=== PATIENT | female | born 1995 | race Caucasian/White ===

== ENCOUNTER 2018-11-29 19:22 | Emergency (ER) | payer MEDICAID ==
[~2018-11-29] VITALS: Wt 50.9 kg
[2018-11-29] MEDS ORDERED: LIDOCAINE/MYLANTA 40 ML BTL PO STA (23:23)
[2018-11-29] MEDS ORDERED: BELLADONNA/PHENOBARBITAL TAB PO STA (23:23)
[2018-11-29] MEDS ORDERED: MAG-19 PO (23:26)
[2018-11-29] MEDS ORDERED: ONDA4TAB14 PO (23:26)
--- NOTE | 2018-11-29 23:46 | ERD ---
ER Documentation Chief Complaint Chief Complaint AP/ VOMIT X'S 1 DAY HPI 23-year-old female presents with abdominal pain and vomiting which started yesterday after eating food from a restaurant. States that she states that she ate a lot of guacamole. After the vomiting she started getting abdominal pain in the epigastric area and then she started getting some mild pain in the lower right quadrant. She went to her clinic and they told her she should come to the ER due to the lower right quadrant pain. She currently states that she does not have any more pain and the pain is since resolved. Last episode of vomiting was this morning and she has had water intake and successfully kept it down since then. Has not taken any treatments. No current nausea or vomiting. She denies any fevers, diarrhea,. Describes vomiting is nonbilious and nonbloody. Denies past medical history. Denies allergies. Denies medications. Denies surgeries. Denies alcohol, tobacco, drug use. Up to date on vaccines. ROS All systems reviewed and are negative except as per history of present illness. Medications Home Meds Active Scripts Ondansetron (Ondansetron Odt) 4 Mg Tab.rapdis, 4 MG PO Q6H PRN for NAUSEA AND/OR VOMITING, #10 TAB Prov:LAURI NICOLAS 11/29/18 Magaldrate/Simethicone* (Mylanta*) 355 Ml Susp, 30 ML PO QID PRN for GASTROINTESTINAL UPSET, #1 BOTTLE Prov:LAURI NICOLAS 11/29/18 Allergies Allergies: Coded Allergies: No Known Allergy (Unverified , 09/17/14) PMhx/Soc Medical and Surgical Hx: pt denies Medical Hx, pt denies Surgical Hx Hx Alcohol Use: No Hx Substance Use: No Hx Tobacco Use: No Smoking Status: Never smoker FmHx Family History: No diabetes, No coronary disease, No other Physical Exam Vitals Vital Signs Date Temp Pulse Resp B/P (MAP) Pulse Ox O2 O2 Flow FiO2 Time Delivery Rate 11/29/18 99.9 93 18 131/75 99 19:48 (93) Physical Exam Const: No acute distress Head: Atraumatic Eyes: Normal Conjunctiva ENT: Normal External Ears, Nose and Mouth. Neck: Full range of motion. No meningismus. Resp: Clear to auscultation bilaterally Cardio: Regular rate and rhythm, no murmurs Abd: Soft, non tender, non distended. Normal bowel sounds. No McBurney's point tenderness. Patient able to jump up and down on exam. Skin: No petechiae or rashes Back: No midline or flank tenderness Ext: No cyanosis, or edema Neur: Awake and alert Psych: Normal Mood and Affect Results 24 hrs Laboratory Tests Test 11/29/18 23:49 POC Beta HCG, Qualitative NEGATIVE Current Medications Medications Dose Sig/Xin Start Time Status Last (Trade) Ordered Route PRN Stop Time Admin Dose Reason Admin 40 ml ONCE STAT 11/29/18 DC 11/29/18 Miscellaneous PO 23:23 23:33 Medication 11/29/18 23:25 (Gi Cocktail (2)) Belladonna/ 2 tab ONCE STAT 11/29/18 DC 11/29/18 Phenobarbital PO 23:23 23:33 () 11/29/18 23:25 Procedures/MDM MDM: 23-year-old female presents with abdominal pain and vomiting which started yesterday after eating food from a restaurant. States that she states that she ate a lot of guacamole. After the vomiting she started getting abdominal pain in the epigastric area and then she started getting some mild pain in the lower right quadrant. She went to her clinic and they told her she should come to the ER due to the lower right quadrant pain. She currently states that she does not have any more pain and the pain is since resolved. Last episode of vomiting was this morning and she has had water intake and successfully kept it down since then. Has not taken any treatments. No current nausea or vomiting. She denies any fevers, diarrhea,. Physical exam was completely within normal limits. There is no McBurney's point tenderness and patient denied any current pain or nausea recent episodes of vomiting. Therefore I have extremely low suspicion for any kind of appendicitis or other abdominal emergency. Patient most likely has gastritis. Patient given GI cocktail in ER and discharged with [place] and [place]. Patient discharged with strict ER precautions. Patient advised to follow up with PMD. All questions answered at discharge. Departure Diagnosis: Primary Impression: Gastritis Gastritis type: unspecified gastritis Chronicity: acute Gastritis bleeding: without bleeding Qualified Codes: K29.00 - Acute gastritis without bleeding Condition: Stable Patient Instructions: Gastritis (Adult) Referrals: [facility] CLIN[facility] YOU HAVE RECEIVED A MEDICAL SCREENING EXAM AND THE RESULTS INDICATE THAT YOU DO NOT HAVE A CONDITION THAT REQUIRES URGENT TREATMENT IN THE EMERGENCY DEPARTMENT. FURTHER EVALUATION AND TREATMENT OF YOUR CONDITION CAN WAIT UNTIL YOU ARE SEEN IN YOUR DOCTORS OFFICE WITHIN THE NEXT 1-2 DAYS. IT IS YOUR RESPONSIBILITY TO MAKE AN APPOINTMENT FOR FOLOW-UP CARE. IF YOU HAVE A PRIMARY DOCTOR --you should call your primary doctor and schedule an appointment IF YOU DO NOT HAVE A PRIMARY DOCTOR YOU CAN CALL OUR PHYSICIAN REFERRAL HOTLINE AT IF YOU CAN NOT AFFORD TO SEE A PHYSICIAN YOU CAN CHOSE FROM THE FOLLOWING [facility] [address] [facility]. [facility] [address] [facility]. [facility] [address] [facility] [facility] [address] [facility]. [facility] [address] [facility]. [facility] [address] Additional Instructions: FOLLOW UP WITH YOUR PRIMARY CARE PHYSICIAN TOMORROW.Return to this facility if you are not improving as expected. LAURI NICOLAS Nov 29, 2018 23:46
== END 2018-11-29 23:55 | disposition home or self-care (01) ==
LOC: FTE 19:22
DX: K29.00 Acute gastritis without bleeding (principal)
CPT/HCPCS: 81025; Z7502; Z7610; 99283